=== PATIENT | male | born 1995 | race Hispanic/Latino ===

== ENCOUNTER 2023-02-13 18:11 | Emergency (ER) | payer SELFPAY | END 2023-02-13 19:13 | disposition home or self-care (01) | LOC: ERS 18:11 | DX: S62.315A Displaced fracture of base of fourth metacarpal bone, left hand, initial encounter for closed fracture (principal); F17.290 Nicotine dependence, other tobacco product, uncomplicated; W22.09XA Striking against other stationary object, initial encounter | CPT/HCPCS: 29125 ==

== ENCOUNTER 2023-11-24 22:16 | Emergency (ER) | payer SELFPAY ==
[2023-11-24] MEDS ORDERED: Ibuprofen 200 MG TAB ONE (23:37)
[2023-11-24] MEDS ORDERED: Acetaminophen 500 MG TAB ONE (23:37)
[2023-11-25 00:16] LABS: Influenza A by NAA Not Detected (NotDetected); Influenza B by NAA Not Detected (NotDetected); SARS-CoV-2 NAA Rapid Test Not Detected (NotDetected)
== END 2023-11-25 01:47 | disposition home or self-care (01) ==
LOC: ERS 22:16
DX: J18.9 Pneumonia, unspecified organism (principal); F17.290 Nicotine dependence, other tobacco product, uncomplicated
CPT/HCPCS: 71045